=== PATIENT | female | born 1945 | race Caucasian/White ===

== ENCOUNTER 2023-12-25 11:23 | Outpatient (CLI) | payer MEDICARE, SELFPAY ==
[2023-12-25 13:11] LABS: ALT 30 U/L (14-59); AST 21 U/L (15-37); Albumin 3.5 g/dL (3.4-5.0); Alkaline Phosphatase 84 U/L (46-116); Anion Gap 8.7 mmol/L (3-11); BUN 20 mg/dL (7-18); Bilirubin, Total 0.35 mg/dL (0.2-1.0); CO2 26.3 mmol/L (21.0-32.0); CREATININE 0.9 mg/dL (0.55-1.02); Calcium 9.2 mg/dL (8.5-10.1); Calculated LDL 204 mg/dL (<100); Chloride 106 mmol/L (98-107); Cholesterol 311 mg/dL (<200); Estimated GFR 65.44 (mL/min/1.73m2); Glucose 97 mg/dL (74-106); HDL Cholesterol 87 mg/dL (40-60); Potassium 4.4 mmol/L (3.5-5.1); Sodium 141 mmol/L (136-145); Total Protein 7.2 g/dL (6.4-8.2); Triglyceride 101 mg/dL (<150)
== END 2023-12-25 11:24 | disposition home or self-care (01) ==
LOC: LOS 11:23
PROVIDERS: PCP Nurse Practitioner Family; Referring Provider Nurse Practitioner Family; Visit Provider Nurse Practitioner Family
DX: E78.5 Hyperlipidemia, unspecified (principal); F32.A Depression, unspecified; K21.9 Gastro-esophageal reflux disease without esophagitis; F01.50 Vascular dementia, unspecified severity, without behavioral disturbance, psychotic disturbance, mood disturbance, and anxiety
CPT/HCPCS: 36415; 80053; 80061

== ENCOUNTER 2024-11-30 00:12 | Outpatient (CLI) | payer MEDICARE, SELFPAY ==
--- NOTE | 2024-11-30 06:30 | DI.RAD_ITS ---
Exam(s) XR KNEE RT 3V AP,LAT,RADHA EXAM: XR KNEE RT 3V AP,LAT,RADHA CLINICAL HISTORY: worsening knee pain,m79.604. TECHNIQUE: 2D digital imaging was performed of the right knee. Four views obtained. AP, lateral and PA tunnel views were obtained. COMPARISON: No exams were available for comparison FINDINGS: BONES: No acute fracture is present. No bony destructive lesion is seen. The distal aspect of an intramedullary ewa is seen transfixing a healed distal right femoral fracture. There are enthesophytes at the superior patella. JOINTS: There is loss of the lateral femoral tibial joint space. There is also marked narrowing of the patellofemoral joint. Osteophytes are seen in all 3 joint compartments. There is chondrocalcinosis seen in the medial femoral tibial joint. There is no significant joint effusion. SOFT TISSUE: Normal. IMPRESSION: Marked degenerative changes seen in the right knee particularly at the lateral femoral tibial joint. DATA REPOSITORY: RADIATION DOSE DELIVERED:
== END 2024-11-30 00:32 ==
LOC: DI 00:12
PROVIDERS: PCP Nurse Practitioner Family; Visit Provider Nurse Practitioner Family
DX: M17.11 Unilateral primary osteoarthritis, right knee (principal)
CPT/HCPCS: 73562

== ENCOUNTER 2024-12-26 14:56 | Outpatient (CLI) | payer MEDICARE, SELFPAY | END 2024-12-26 14:57 | LOC: OCO 02-27 12:02 | PROVIDERS: PCP Nurse Practitioner Family; Referring Provider Physician Assistant; Visit Provider Physician Assistant | DX: S72.301D Unspecified fracture of shaft of right femur, subsequent encounter for closed fracture with routine healing (principal); M17.11 Unilateral primary osteoarthritis, right knee; X58.XXXD Exposure to other specified factors, subsequent encounter | CPT/HCPCS: 20610; 73552; 99204; J1010 ==

== ENCOUNTER 2024-12-26 17:36 | Outpatient (CLI) | payer MEDICARE, SELFPAY ==
--- NOTE | 2024-12-26 15:00 | DI.RAD_ITS ---
Exam(s) XR FEMUR RT EXAM: XR FEMUR RT CLINICAL HISTORY: HX R FEMUR ORIF. TECHNIQUE: 2D digital imaging was performed. AP and lateral views. COMPARISON: CR XR KNEE RT 3V AP,LAT,RADHA from 11/30/2024 FINDINGS: BONES: No acute fracture is present. Again noted is an intramedullary ewa through the femur. There are no abnormal surrounding lucencies. There is an old fracture of the distal 3rd of the femoral shaft. No bony destructive lesion is seen. JOINTS: The hip joint space is maintained. There is severe degenerative changes of the lateral femoral tibial joint. Degenerative changes also noted in the patellofemoral joint. SOFT TISSUE: Normal. IMPRESSION: Stable appearance of intramedullary ewa and distal femoral fracture. Severe degenerative changes are again noted in the lateral femoral tibial joint space. DATA REPOSITORY: RADIATION DOSE DELIVERED:
[2024-12-26 18:12] LABS: Polynuclear Cells 44 %; Source Synovial
== END 2024-12-26 17:37 | disposition home or self-care (01) ==
LOC: LBN 17:36
PROVIDERS: PCP Nurse Practitioner Family; Referring Provider Nurse Practitioner Family; Visit Provider Student in an Organized Health Care Education/Training Program
DX: M17.11 Unilateral primary osteoarthritis, right knee (principal); M79.604 Pain in right leg; M79.605 Pain in left leg; Z98.890 Other specified postprocedural states; R26.89 Other abnormalities of gait and mobility; S72.301K Unspecified fracture of shaft of right femur, subsequent encounter for closed fracture with nonunion; X58.XXXA Exposure to other specified factors, initial encounter; M86.8X6 Other osteomyelitis, lower leg
CPT/HCPCS: 20610; 73552; 99204; J1010; 87070; 87205; 89051

== ENCOUNTER 2024-12-27 13:42 | Outpatient (CLI) | payer MEDICARE, SELFPAY ==
[2024-12-27 17:00] LABS: HCT 44.3 % (36.0-46.0); HGB 14.4 g/dL (11.2-15.7); MCH 32.1 pg (27.0-33.0); MCHC 32.5 % (32.0-36.0); MCV 99 fL (80-95); MPV 11.6 fL (8.0-11.0); Platelet Count 267 10^3/uL (130-400); RBC 4.49 10^6/uL (3.93-5.22); RDW 13.3 % (11.7-14.6); RDW-SD 48.2 fL; WBC 12.77 10^3/uL (4.4-10.8)
[2024-12-27 17:38] LABS: ALT 22 U/L (10-49); AST 23 U/L (<34); Albumin 4.5 g/dL (3.4-5.0); Alkaline Phosphatase 78 U/L (46-116); Anion Gap 12.8 mmol/L (3-11); BUN 18 mg/dL (9-23); Bilirubin, Total 0.50 mg/dL (0.2-1.2); CO2 23.2 mmol/L (20.0-31.0); Calcium 9.5 mg/dL (8.3-10.6); Chloride 104 mmol/L (98-107); Cholesterol 228 mg/dL (<200); Glucose 105 mg/dL (74-106); HDL Cholesterol 100 mg/dL (>40); Potassium 4.1 mmol/L (3.5-5.1); Sodium 140 mmol/L (136-145); Total Protein 7.3 g/dL (5.7-8.2)
== END 2024-12-27 13:43 | disposition home or self-care (01) ==
LOC: LOS 13:42
PROVIDERS: PCP Nurse Practitioner Family; Visit Provider Nurse Practitioner Family
DX: E78.5 Hyperlipidemia, unspecified (principal); K21.9 Gastro-esophageal reflux disease without esophagitis
CPT/HCPCS: 36415; 80053; 80061; 85027

== ENCOUNTER → 2025-01-09 02:06 | Outpatient (CLI) | payer MEDICARE, SELFPAY ==
--- NOTE | 2025-01-09 06:30 | DI.CT_ITS ---
Exam(s) CT LOWER EXTREMITY RT WO EXAM: CT LOWER EXTREMITY RT WO CLINICAL HISTORY: LEG PAIN,M79.606. TECHNIQUE: Imaging Protocol: Axial computed tomography images with coronal and sagittal reformatted images were created and reviewed. COMPARISON: CR XR KNEE RT 3V AP,LAT,RADHA from 11/30/2024 CR XR FEMUR RT from 12/26/2024 FINDINGS: Bones: There is again seen an intramedullary ewa within the femur with proximal and distal screws present. There is a fracture of the inferior screw in the proximal intramedullary ewa. 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 There is lucency seen around the proximal aspect intramedullary ewa at the fracture site. There is marked tricompartment osteoarthritis of the right knee characterized by asymmetric joint space narrowing and osteophytes. Subchondral sclerosis and subchondral cysts are seen in the femoral tibial joints, particularly laterally. There is no new fracture or dislocation identified. There are degenerative changes seen in the right hip characterized by asymmetric joint space narrowing and osteophytes. No lytic or sclerotic lesions are identified. Soft Tissues: There is mild fatty atrophy in the thigh. No focal fluid collection is seen to suggest an abscess. There is a joint effusion in the right knee. IMPRESSION: 1. 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 2. Lucency seen around the proximal aspect of the intramedullary ewa at the fracture site. This may represent loosening or infection. 3. Marked osteoarthritis of the right knee and moderate osteoarthritis of right hip. 4. Right knee joint effusion. RADIATION DOSE DELIVERED: 591.67mGy.cm Total DLP 591.67mGy.cm Total DLP DATA REPOSITORY: All CT scans at this facility are submitted to the National Radiology Data Registry (NRDR) Dose Index Registry (DIR) with the [employer] ([employer]). RADIATION OPTIMIZATION: All CT scans at this facility use at least one of these dose optimization techniques: automated exposure control; mA and/or kV adjustment per patient size (includes targeted exams where dose is matched to clinical indication); or iterative reconstruction.
== END ==
LOC: DI 02:07
PROVIDERS: PCP Nurse Practitioner Family; Visit Provider Student in an Organized Health Care Education/Training Program
DX: S72.402D Unspecified fracture of lower end of left femur, subsequent encounter for closed fracture with routine healing (principal); X58.XXXD Exposure to other specified factors, subsequent encounter; M17.11 Unilateral primary osteoarthritis, right knee; M16.11 Unilateral primary osteoarthritis, right hip
CPT/HCPCS: 73700

== ENCOUNTER → 2025-01-19 12:44 | Outpatient (BNVA) | payer MEDICARE, SELFPAY | PROVIDERS: PCP Nurse Practitioner Family; Referring Provider Nurse Practitioner Family; Visit Provider Student in an Organized Health Care Education/Training Program | DX: M17.11 Unilateral primary osteoarthritis, right knee (principal); M86.9 Osteomyelitis, unspecified; M21.061 Valgus deformity, not elsewhere classified, right knee; S72.301K Unspecified fracture of shaft of right femur, subsequent encounter for closed fracture with nonunion; X58.XXXD Exposure to other specified factors, subsequent encounter | CPT/HCPCS: 99214 ==